=== PATIENT | male | born 1995 | race Caucasian/White ===

== ENCOUNTER 2017-01-31 03:30 | Emergency (ER) | payer OTHER ==
[~2017-01-31] VITALS: Ht 188 cm; Wt 83.1 kg
[2017-01-31 03:33] VITALS: TEMP 36.7; Ht 188 cm; Wt 83.1 kg
[2017-01-31] MEDS ORDERED: SODIUM CHLORIDE 0.9% 1000ML 1,000 ML IV STA (03:44)
[2017-01-31] MEDS ORDERED: LORAZEPAM 2 MG/ML 1 ML VIAL IV STA (03:44)
[2017-01-31 04:04] LABS: BASO % 0.3 %; BASO ABS # 0.03 K/uL (0-0.2); COMPLETE YES; EOS % 1.5 %; HEMATOCRIT 39.7 % (42-52); IG% 0.3 %; LYMPH % 44.6 %; LYMPH ABS # 3.88 K/uL (1.2-3.4); MEAN CELL VOLUME 83.8 fL (80-100); MEAN CORPUSCULAR HEMOGLOBIN 31.6 pg (25-34); MEAN CORPUSCULAR HGB CONC 37.8 g/dl (32-36); MEAN PLATELET VOLUME 9.3 fL (7.4-10.4); MONO % 11.1 %; NEUT % 42.2 %; PLATELET COUNT 218 K/uL (130-400); RED BLOOD COUNT 4.74 M/uL (4.7-6.1)
[2017-01-31 04:17] LABS: POINT OF CARE TROPONIN I < 0.030 ng/ml (0-0.045)
[2017-01-31 04:26] LABS: ALT/SGPT 39 U/L (12-78); AST/SGOT 15 U/L (15-37); BLOOD UREA NITROGEN 15 mg/dl (7-18); BUN/CREATININE RATIO 15.2 (10-20); CALCIUM 8.3 mg/dl (8.5-10.1); CARBON DIOXIDE 27 mmol/L (21-32); CHLORIDE 105 mmol/L (98-107); CREATININE 0.99 mg/dl (0.60-1.40); GLUCOSE 167 mg/dl (70-99); POTASSIUM 3.2 mmol/L (3.5-5.1); SODIUM 142 mmol/L (136-145)
[2017-01-31 04:31] LABS: ALKALINE PHOSPHATASE 56 U/L (45-117)
[2017-01-31] MEDS ORDERED: POTASSIUM CHLORIDE 10 MEQ TABCR PO STA (04:33)
--- NOTE | 2017-01-31 04:37 | EMERGENCY ROOM VISIT NOTE ---
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 History of Present Illness The patient is a 21 year old male who presents to the Emergency Room with complaints of chest pain, shortness of breath and feeling anxious who got lightheaded and and had tunnel vision with tingling to extremities for the past hour. Patient states he got worried and symptoms got worse. He then came here. Patient occasionally smokes marijuana and did this yesterday afternoon. Nothing more recent than that. No other drugs. No alcohol. Patient denies fever, chills, cough, abdominal pain, leg swelling, history of DVT or PE. No family history of blood clots. His grandmother had heart disease. Review of Systems See HPI for pertinent positives & negatives. A total of 10 systems reviewed and were otherwise negative. Past Medical/Surgical History None Social History Smoking Status: Never Smoker Smokeless Tobacco Use: No Alcohol Use: none Drug Use: marijuana Marital Status: in relationship Occupation Status: [employer] student Allergies Coded Allergies: Sulfa Antibiotics (Verified Allergy, Unknown, rash, 01/31/17) Physical Exam Vital Signs Date Time Temp Pulse Resp B/P (MAP) Pulse Ox O2 Delivery O2 Flow Rate FiO2 01/31/17 04:05 91 01/31/17 04:00 Room Air 01/31/17 03:40 99 Room Air 01/31/17 03:33 36.7 108 20 141/88 99 Room Air Physical Exam VITALS: Vitals are noted on the nurse's note and reviewed by myself. Vital signs stable. GENERAL: Pleasant male anxious-appearing, in no acute distress, nondiaphoretic, well-developed well-nourished. SKIN: The skin was without rashes, erythema, edema, or bruising. There is no tenting of the skin. Capillary reflex less than 2 seconds. HEAD: Normocephalic atraumatic. EARS: External auditory canals clear, tympanic membranes pearly booker without erythema or effusion bilaterally. EYES: Pupils equal round and reactive to light and accommodation. Conjunctivae without injection, sclerae without icterus. Extraocular movements intact. NOSE: Patent, turbinates without inflammation or discharge. MOUTH: Mucous membranes moist. Pharynx without erythema or exudate. Uvula midline. Airway patent. Tongue does not deviate. NECK: Supple without nuchal rigidity. No lymphadenopathy. No thyromegaly. Cervical spine is nontender. No JVD. HEART: Regular rate and rhythm without murmurs gallops or rubs. No chest wall tenderness LUNGS: Clear to auscultation bilaterally without wheezes, rales or rhonchi. No dullness to percussion. No retractions or accessory muscle use. ABDOMEN: Positive bowel sounds x 4. Normal tympanic percussion. Soft, nontender, without masses or organomegaly. Eli sign negative. No guarding or rebound tenderness. MUSCULOSKELETAL: No muscle atrophy, erythema, or edema noted. NEURO: Patient was alert and oriented to person place and time. Normal sensation to light and sharp touch. No focal neurological deficits. Medical Decision & Procedures Laboratory Results 01/31/17 03:50 Red Blood Count 4.74, Mean Corpuscular Volume 83.8, Mean Corpuscular Hemoglobin 31.6, Mean Corpuscular Hemoglobin Concent 37.8, Mean Platelet Volume 9.3, Neutrophils (%) (Auto) 42.2, Lymphocytes (%) (Auto) 44.6, Monocytes (%) (Auto) 11.1, Eosinophils (%) (Auto) 1.5, Basophils (%) (Auto) 0.3, Neutrophils # (Auto ) 3.66, Lymphocytes # (Auto) 3.88, Monocytes # (Auto) 0.97, Eosinophils # (Auto ) 0.13, Basophils # (Auto) 0.03 01/31/17 03:50 Test 01/31/17 03:50 01/31/17 03:58 White Blood Count 8.70 K/uL (4.8-10.8) Red Blood Count 4.74 M/uL (4.7-6.1) Hemoglobin 15.0 g/dL (14.0-18.0) Hematocrit 39.7 % (42-52) Mean Corpuscular Volume 83.8 fL (80-100) Mean Corpuscular Hemoglobin 31.6 pg (25-34) Mean Corpuscular Hemoglobin Concent 37.8 g/dl (32-36) Platelet Count 218 K/uL (130-400) Mean Platelet Volume 9.3 fL (7.4-10.4) Neutrophils (%) (Auto) 42.2 % Lymphocytes (%) (Auto) 44.6 % Monocytes (%) (Auto) 11.1 % Eosinophils (%) (Auto) 1.5 % Basophils (%) (Auto) 0.3 % Neutrophils # (Auto) 3.66 K/uL (1.4-6.5) Lymphocytes # (Auto) 3.88 K/uL (1.2-3.4) Monocytes # (Auto) 0.97 K/uL (0.11-0.59) Eosinophils # (Auto) 0.13 K/uL (0-0.5) Basophils # (Auto) 0.03 K/uL (0-0.2) RDW Standard Deviation 37.4 fL (36.4-46.3) RDW Coefficient of Variation 12.1 % (11.5-14.5) Immature Granulocyte % (Auto) 0.3 % Immature Granulocyte # (Auto) 0.03 K/uL (0.00-0.02) Anion Gap 10.0 mmol/L (3-11) Est Creatinine Clear Calc Drug Dose 137.3 ml/min Estimated GFR () 125.7 Estimated GFR (Non- 108.4 BUN/Creatinine Ratio 15.2 (10-20) Calcium Level 8.3 mg/dl (8.5-10.1) Total Bilirubin 0.4 mg/dl (0.2-1) Direct Bilirubin 0.1 mg/dl (0-0.2) Aspartate Amino Transf (AST/SGOT) 15 U/L (15-37) Alanine Aminotransferase (ALT/SGPT) 39 U/L (12-78) Alkaline Phosphatase 56 U/L (45-117) Troponin I < 0.015 ng/ml (0-0.045) Total Protein 7.7 gm/dl (6.4-8.2) Albumin 4.3 gm/dl (3.4-5.0) Lipase 113 U/L (73-393) Bedside D-Dimer 81 ng/mlFEU (0-450) Bedside Troponin I < 0.030 ng/ml (0-0.045) Medications Administered Medications (Trade) Dose Ordered Sig/Radha Route Start Time Stop Time Status Last Admin Dose Admin Lorazepam (Ativan Inj) 1 mg NOW STAT IV 01/31/17 03:44 01/31/17 03:46 DC 01/31/17 04:04 1 MG Sodium Chloride 1,000 ml @ 999 mls/hr Q1H1M STAT IV 01/31/17 03:44 01/31/17 04:44 01/31/17 04:04 999 MLS/HR ED Course Prior records/ancillary studies reviewed. Triage Nursing notes reviewed. Additional history obtained from friend. The patient's history was concerning for chest pain. Differential diagnosis: Etiologies such as cardiac ischemia, aortic dissection, pulmonary embolism, pneumonia, pneumothorax, musculoskeletal, infections, pericarditis, myocarditis , esophageal rupture, gastrointestinal, as well as others were entertained. Physical examination: As above. ER treatment provided: Ativan On reassessment the patient felt better. Diagnostic interpretation by me: The electrocardiogram was negative for pathologic change. Normal sinus, normal intervals, no acute ST-T wave changes. Impression normal sinus rhythm interpreted by myself The labs revealed negative d-dimer. Negative troponin. Hypokalemia and this is replaced orally Imaging studies: Chest x-ray with no acute consolidation, pneumothorax or free air per my interpretation Exam and history seem consistent with noncardiac chest pain with examined. Patient had unremarkable workup as above. He is well-appearing. He was advised to decrease stress and stop smoking marijuana and to follow-up family care in a few days or here in the ER sooner for chest pain, difficulty breathing , worsening signs or symptoms or as needed. By the evaluation outlined above emergent etiologies such as cardiac ischemia, aortic dissection, pulmonary embolism, pneumonia, pneumothorax, infections, pericarditis, myocarditis, gastrointestinal, as well as others were deemed relatively unlikely. The pt informed about the findings as listed above. All questions were answered and pleased with the treatment. Return instructions were outlined and the patient was discharged in stable condition. Referral: The patient was referred back to primary care physician for follow-up in 2 to 3 days for a recheck of the current condition. Case reviewed with my attending Medical Decision As above Impression Primary Impression: Non-cardiac chest pain Additional Impression: Anxiety Departure Information Dispostion Home / Self-Care Condition GOOD Referrals No Doctor, Assigned (PCP) Patient Instructions [facility] Additional Instructions DO NOT drive, drink alcohol, operate machinery, or perform dangerous activities today. You were given medications in the ER that can affect your ability to safely function or operate a vehicle. Ibuprofen(Motrin, Advil) may be used for fever or pain. Use 600mg every six hours as needed. Take with food. Avoid using more than 2400mg in a 24 hour period. Do not use 2400mg per day for more than three consecutive days without physician direction. Prolonged inappropriate use can lead to stomach upset or ulcers. (AND/OR) Acetaminophen(Tylenol) may be used for fever or pain. Use 1000mg every six hours as needed. Avoid using more than 3000mg in a 24 hour period. Rest and drink plenty of fluids as tolerated. Continue current medications. Avoid strenuous activities and anything that worsens your pain. Resume normal activities once your symptoms resolve. Return to the ER immediately for worsening or persistent chest pain, abdominal pain, vomiting, fevers, chest pains, difficulty breathing, worsening of your condition, or as needed. Follow up with your primary physician in 2-3 days for a recheck of your current condition. Problem Qualifiers
[2017-01-31 04:53] VITALS: BP 127/78; PULSE 93; O2SAT 100
--- NOTE | 2017-01-31 08:07 | DIAGNOSTIC IMAGING REPORT ---
CHEST ONE VIEW PORTABLE CLINICAL HISTORY: Atypical chest pain and tightness. Lightheadedness. Loss of vision. COMPARISON STUDY: No previous studies for comparison. FINDINGS: The cardiac and mediastinal contours are normal. There is no evidence of focal pulmonary consolidation. There is no evidence of failure. No pleural effusions are visualized.[ IMPRESSION: No active disease in the chest. Electronically signed by: Lucas Justin M.D. 01/31/2017 8:06 AM Dictated Date/Time: 01/31/2017 8:05 AM
== END 2017-01-31 04:55 | disposition home or self-care (01) ==
LOC: C.EDB 03:32
DX: R07.89 Other chest pain (principal); F41.9 Anxiety disorder, unspecified; F12.90 Cannabis use, unspecified, uncomplicated

== ENCOUNTER → 2017-05-18 | Outpatient (CLI) | payer OTHER ==
[~2017-05-18] VITALS: Ht 188 cm; Wt 82.1 kg
[2017-05-18 14:14] VITALS: BP 116/75; PULSE 76; Ht 188 cm; Wt 82.1 kg
== END | disposition home or self-care (01) ==
LOC: C.NEUR 13:25
PROVIDERS: ATTEND Internal Medicine Pulmonary Disease
DX: R06.83 Snoring (principal); R06.81 Apnea, not elsewhere classified; R53.83 Other fatigue

== ENCOUNTER → 2017-12-14 | Outpatient (CLI) | payer OTHER ==
[~2017-12-14] VITALS: Ht 185.4 cm; Wt 80.7 kg
[2017-12-14 14:57] VITALS: BP 114/72; PULSE 78; Ht 185.4 cm; Wt 80.7 kg
== END | disposition home or self-care (01) ==
LOC: C.NEUR 13:59
PROVIDERS: ATTEND Physician Assistant Medical
DX: R53.83 Other fatigue (principal); R06.83 Snoring